=== PATIENT | female | born 1950 | race Caucasian/White ===

== ENCOUNTER 2024-09-07 15:47 | Outpatient (CLI) | payer BC, SELFPAY | END 2024-09-07 15:48 | disposition home or self-care (01) | LOC: AMB 09-08 14:51 | PROVIDERS: Visit Provider Family Medicine | DX: S09.90XA Unspecified injury of head, initial encounter (principal); W17.89XA Other fall from one level to another, initial encounter; Y92.9 Unspecified place or not applicable | CPT/HCPCS: A0425; A0429 ==